=== PATIENT | female | born 1960 | race Caucasian/White ===

== ENCOUNTER 2018-09-14 06:03 | Day surgery (SDC) | payer BC, SELFPAY ==
--- NOTE | 2018-09-14 06:06 | W.COLOREPORT ---
Date of service: 09/14/18 Time of Service: : Colonoscopy Report Date of procedure: 09/14/18 Pre-op diagnosis general: Colon Cancer Screening Post-op diagnosis procedure note: same Procedure: Colonoscopy Surgeon: Nathalie Estrella Anesthesia proc note operative: MAC (Sydnie Ruffin CRNA) Estimated blood loss (mL): 0 Pathology: none sent Complications: None Disposition: same day Indications: Mrs. Robles is a pleasant 57 year old seen in the office for a screening colonoscopy. Risks, benefits and complications were reviewed with the patient and she wished to proceed no guarantees were given or implied. Prep: Miralax/Dulcolax Procedure Start Time: : Procedure End Time: : Retraction Time: 14 minutes Findings: Normal colon Procedure Description: After informed consent was obtained the patient was taken to the procedure room and placed in a left decubitous position. Monitors were applied and a time out was done. The patients name, date of , procedure, allergies to medications and metal in their body was reviewed. The patient was then sedated. Once sedated and comfortable a rectal exam was done. External exam was normal. Internal exam revealed a normal sphincter tone and no palpable masses. The scope was then introduced and retroflexed. Small Grade 1 internal hemorrhoids were identified. The scope was then advanced to the cecum without difficulty. The TI and appendiceal orifice were identified. The prep was adequate. The scope was then slowly retracted over 14 minutes back into the rectum. The scope was removed and the patient was woken up and taken back to Same day surgery in stable condition. The patient tolerated the procedure well and there were no immediate complications. Follow up: The patient should follow up in 10 years unless they develop changes in bowel habits or other new gastrointestinal complaints.
--- NOTE | 2018-09-14 06:10 | PDOC.DSDIS_ITS ---
Discharge Plan Disposition Patient Disposition: HOME Condition: Good Discharge Details Reason For Visit: Colonoscopy Attending Provider: Nathalie Estrella Primary Care Provider: Eden Kent Home Meds and New Rx's Prescriptions: Continue multivitamin [Daily Multi-Vitamin] 1 EACH tablet 1 ea PO DAILY RF: 0 cholecalciferol (vitamin D3) 5,000 UNIT tablet 5,000 unit PO DAILY RF: 0 black cohosh [Menopause Support] 20 MG tablet 20 mg PO BID RF: 0 inulin-chromium picolinate [Fiber Gummies (with chromium)] 1 EACH tablet, chewable 1 ea PO DAILY RF: 0 Discontinued polyethylene glycol 3350 17 gram powder in packet 255 g PO DAILY Qty: 15 RF: 0 bisacodyl [Dulcolax (bisacodyl)] 5 mg tablet,delayed release (DR/EC) 5 mg PO ONCE Qty: 4 RF: 0 Discharge Instructions Instructions: Colonoscopy (DC), Hemorrhoids (GEN) Additional Instructions: Findings: small internal hemorrhoids Follow up: 10 years New Medication: none Please call if you develop: fevers >101.5 Nausea or Vomiting Abdominal pain that is not transient DAY SURGERY UNIT POST COLONOSCOPY INSTRUCTIONS 1. Because there will be medication in your system for the next 24 hours, you may feel a little sleepy. Your coordination will be affected. Therefore: a. Do not drive or operate dangerous equipment for 24 hours. b. Do not drink alcohol beverages for 24 hours (not even beer). c. Plan to go home and rest for the day. 2. Generally there are no restrictions on your activity after a day or so has gone by, but you may feel a bit fatigued for a few days. 3 After you arrive home you may have a light meal and return to a normal diet as you can tolerate it without feeling sick to your stomach. 4. After surgery, you may feel pain or discomfort. This should be only transient , but if it persists please contact your doctor. 5. If there are any questions regarding the findings of your procedure, please feel free to contact your doctor. 6. If you are unable to contact your doctor with a problem, contact the ospital at [phone]. 7. Continue all your regular medications unless directed otherwise. I understand the above instructions and have no questions. Signature of Patient or Responsible Adult Escort Date/Time Name of Responsible Adult Escort Signature of Nurse Date/Time Stand Alone Forms: Lissett Roque (CALEBU) Activity:: Activity as Tolerated Activity:: Activity as Tolerated Diet:: high fiber diet Discharge Orders Discharge Orders: Discharge Order (Routine); Ordered 09/14/18 Ordered By: Nathalie Estrella DS: Diagnosis Discharge Diagnosis (1) Normal colonoscopy: Status: Acute
[2018-09-14 06:14] VITALS: BP 104/69; PULSE 69; RESP 14; TEMP 35.9; O2SAT 99
[2018-09-14] MEDS: Lactated Ringers 1,000 ML 80 ML IV (06:31)
[2018-09-14 08:11] VITALS: BP 98/69; PULSE 65; RESP 16; TEMP 35.9; O2SAT 99
== END 2018-09-14 08:48 | disposition home or self-care (01) ==
PROVIDERS: PCP Family Medicine; Visit Provider Surgery
PROC: 0DJD8ZZ Inspection of Lower Intestinal Tract, Via Natural or Artificial Opening Endoscopic (ICD-10-PCS; CPT 45378; principal; 2018-09-14 07:30)
DX: Z12.11 Encounter for screening for malignant neoplasm of colon (principal); K64.0 First degree hemorrhoids; K21.9 Gastro-esophageal reflux disease without esophagitis
CPT/HCPCS: 45378

== ENCOUNTER 2019-01-21 09:23 | Outpatient (REF) | payer BC, SELFPAY ==
--- NOTE | 2019-01-21 08:30 | PAPFT_PTH ---
PATIENT: Sera Robles LOC: [facility] U#:[id number] AGE/SX: 58/F ROOM: RE01/21/[address]: RACHELE Márquez : 1960 BED: DIS: 01/21/2019 SPEC #: [id number] RECD: 01/21/19 12:57 STATUS: JANAK REHernesto #: [id number] ALLIE: 01/21/19 08:[address]: Greer Horton DEPT: [facility] Cytology RECD BY: Mary Alonzo ENTERED: 01/21/19 12:57 SP TYPE: PAPFT AARON DR: Eden Kent MD Tissues: 1 - CX/ENDOCX FOR PAP SMEARS Procedures: PAP THIN PREP/UVM Screening HPV DNA PROBE Comments: [id number]
== END 2019-01-21 09:43 ==
LOC: LBN 09:23
PROVIDERS: PCP Family Medicine; Visit Provider Nurse Practitioner Family
DX: Z12.4 Encounter for screening for malignant neoplasm of cervix (principal); Z11.51 Encounter for screening for human papillomavirus (HPV)
CPT/HCPCS: 88142; 87624

== ENCOUNTER 2019-02-02 00:41 | Outpatient (CLI) | payer BC, SELFPAY ==
--- NOTE | 2019-02-02 07:57 | DI.MAMMO_ITS ---
SYMPTOM/DIAGNOSIS: SCREENING, Z12.31 MAMMOGRAMS: Mammograms were interpreted according to the usual protocol including computer analysis with CAD system, tomosynthesis and C view imaging. Comparison with prior examinations. Breast density C. No suspicious masses or microcalcifications are seen. There is no definite evidence of malignancy. IMPRESSION: Negative mammogram. Routine screening is recommended. Category I. MQSA ASSESSMENT OF FINDINGS: Negative. Category 1. Patient will receive a letter notifying them of these results. Bi-RADS category C. The breasts are heterogeneously dense, which may obscure small masses.
== END 2019-02-02 01:01 ==
PROVIDERS: PCP Family Medicine; Visit Provider Nurse Practitioner Family
DX: Z12.31 Encounter for screening mammogram for malignant neoplasm of breast (principal)
CPT/HCPCS: 77063; 77067

== ENCOUNTER 2019-06-15 01:37 | Outpatient (CLI) | payer BC, SELFPAY ==
[2019-06-15 07:46] LABS: Abs Immature Grans 0.02 k/cumm (0.0-0.09); Absolute Basophil Count 0.02 k/cumm (0.0-0.2); Absolute Eosinophil Count 0.14 k/cumm (0.0-0.7); Absolute Lymphocyte Count 1.46 k/cumm (1.2-3.4); Absolute Monocyte Count 0.42 k/cumm (0.11-0.7); Basophils % 0.4; Eosinophils % 2.9; HCT 41.4 % (36.0-46.0); HGB 13.8 g/dL (12.0-15.5); Immature Grans % 0.4; Lymphocytes % 30.7; Mean Corp. HGB Concentration 33.3 g/dL (32.0-36.0); Mean Corpuscular Hemoglobin 29.1 pg (27.0-33.0); Mean Corpuscular Volume 87.3 fL (80-95); Mean Platelet Volume 10.3 fL (8.0-11.0); Monocytes % 8.8; Neutrophils % 56.8; Platelet Count 289 x1000/uL (130-400); RBC 4.74 m/cumm (4.00-5.20); RBC Distribution Width 13.5 % (11.7-14.6); White Blood Cell Count 4.76 k/cumm (4.4-10.8)
[2019-06-15 08:35] LABS: ESR 18 mm/hr (0-30)
[2019-06-15 08:53] LABS: Calculated LDL 198 mg/dL; Cholesterol 268 mg/dL (50-200); HDL Cholesterol 58 mg/dL (40-60); Triglyceride 62 mg/dL (30-150)
[2019-06-16 11:21] LABS: Rheumatoid Factor <8 IU/mL (<12.5)
[2019-06-16 14:39] LABS: ANA Interpretation Positive (NEGAT); ANA Titer Pattern SEE COMMENTS
== END 2019-06-15 01:57 ==
PROVIDERS: PCP Family Medicine; Visit Provider Family Medicine
DX: M25.50 Pain in unspecified joint (principal); E78.00 Pure hypercholesterolemia, unspecified; R53.83 Other fatigue
CPT/HCPCS: 36415; 80061; 83721; 85652; 85025; 86038; 86431

== ENCOUNTER 2019-06-17 01:50 | Outpatient (CLI) | payer BC, SELFPAY ==
[2019-06-17 10:17] LABS: ALT 32 U/L (12-78); AST 19 U/L (15-37); Albumin 3.6 g/dL (3.4-5.0); Alkaline Phosphatase 73 U/L (46-116); Anion Gap 9.5 mmol/L (3-11); BUN 15 mg/dL (7-18); Bilirubin, Total 0.3 mg/dL (0.2-1.0); CO2 25.5 mmol/L (21.0-32.0); CREATININE 0.75 mg/dL (0.55-1.02); Calcium 8.8 mg/dL (8.5-10.1); Chloride 108 mmol/L (98-107); Glucose 100 mg/dL (70-100); Potassium 4.3 mmol/L (3.5-5.1); Sodium 143 mmol/L (136-145); TSH (W/Ref FT4) 3.89 uIU/mL (0.36-3.74); Total Protein 6.9 g/dL (6.4-8.2)
[2019-06-17 10:36] LABS: FREE T4 0.88 ng/dL (0.76-1.46)
== END 2019-06-17 02:10 ==
PROVIDERS: PCP Family Medicine; Visit Provider Internal Medicine
DX: R53.83 Other fatigue (principal); R10.9 Unspecified abdominal pain
CPT/HCPCS: 36415; 80053; 84439; 84443

== ENCOUNTER 2019-06-22 00:33 | Outpatient (CLI) | payer BC, SELFPAY ==
[2019-06-22] MEDS: Omnipaque 350 MG/ML 100 ML BTL IJ (11:07)
--- NOTE | 2019-06-22 11:11 | DI.CT_ITS ---
SYMPTOMS/DIAGNOSIS: ABD PAIN, R10.9 CT SCAN OF THE ABDOMEN AND PELVIS: CT scan of the abdomen and pelvis was performed following oral and intravenous contrast material. There are no priors for comparison. The visualized lung bases are clear. The liver is normal in size. There are hepatic cysts present. No suspicious hepatic mass is seen. The portal, superior mesenteric and splenic veins are patent. The gallbladder is negative. There is no biliary ductal dilatation. The pancreas is unremarkable as are the spleen and adrenal glands. The kidneys show normal and symmetric enhancement. No solid renal mass or obstruction is identified. The urinary bladder is intact. The reproductive organs are unremarkable. The right ovary is located in the right lower quadrant. There is a 2.2 cm cyst on the right ovary. The bowel shows no evidence of obstruction, inflammation or infection. No findings to suggest an acute appendicitis are present. The abdominal aorta is of normal caliber. No significant abdominal or pelvic adenopathy, ascites or pneumoperitoneum is seen. There is a small fat containing periumbilical hernia. Degenerative changes are seen in the spine. No acute osseous abnormality is identified. IMPRESSION: No evidence of an acute abdominal or pelvic process to account for the patient's symptoms.
== END 2019-06-22 00:53 ==
PROVIDERS: PCP Family Medicine; Visit Provider Internal Medicine
DX: R10.9 Unspecified abdominal pain (principal); N83.291 Other ovarian cyst, right side; K42.9 Umbilical hernia without obstruction or gangrene
CPT/HCPCS: 74177; J3490

== ENCOUNTER 2020-05-03 08:24 | Outpatient (CLI) | payer BC, SELFPAY ==
[2020-05-05 07:31] LABS: COVID-19 RT-PCR Result NEGATIVE (Negative)
== END 2020-05-03 08:44 ==
PROVIDERS: PCP Family Medicine; Visit Provider Family Medicine
DX: Z11.59 Encounter for screening for other viral diseases (principal)
CPT/HCPCS: U0003

== ENCOUNTER 2020-07-17 07:11 | Outpatient (CLI) | payer BC, SELFPAY ==
[2020-07-19 05:23] LABS: SARS-CoV-2 RNA Undetected (Undetected); SARS-CoV-2 Specimen Source Nasopharynx
== END 2020-07-17 07:31 ==
PROVIDERS: PCP Family Medicine; Visit Provider Family Medicine
DX: Z11.59 Encounter for screening for other viral diseases (principal)
CPT/HCPCS: U0003

== ENCOUNTER 2020-09-25 03:10 | Outpatient (CLI) | payer BC, SELFPAY ==
[2020-09-25 08:34] LABS: TSH 3.56 uIU/mL (0.36-3.74)
== END 2020-09-25 03:30 ==
PROVIDERS: PCP Family Medicine; Visit Provider Family Medicine
DX: E03.9 Hypothyroidism, unspecified (principal)
CPT/HCPCS: 36415; 84443

== ENCOUNTER 2020-11-10 03:50 | Outpatient (CLI) | payer BC, SELFPAY ==
--- NOTE | 2020-11-10 07:55 | DI.MAMMO_ITS ---
EXAM: MG MAMMO SCREENING CLINICAL HISTORY: screening TECHNIQUE: Bilateral full field digital CC and MLO mammographic images were obtained with 3D tomosyn thesis and utilizing computer aided detection (CAD). COMPARISON: Available for comparison. FINDINGS: Masses/Architectural Distortion: None seen. Microcalcifications: No suspicious pleomorphic-type are seen. Skin Thickening/Nipple Retraction: None. IMPRESSION: 1. No significant interval change with no specific features of malignancy noted. 2. Unless there is more urgent need, screening mammography is recommended, as per [place] [employer] guidelines. BI-RADS Category 1 - Negative Breast Density - Category B - Scattered areas of fibroglandular density Breast density category C or D implies that the patient has dense breast tissue. Dense breast tissue is very common and is not abnormal but dense breast tissue can make it harder to find cancer on a ma mmogram. Also, dense breast tissue may increase their breast cancer risk. This information about the result of the mammogram report was provided to the patient to raise their awareness. Use this report when you speak with the patient about their risks for breast cancer, which includes their family hist ory. At that time, you may recommend for more screening tests (Ultrasound or MRI) as they might be us eful based on their risk. A negative radiographic report should not delay biopsy if a dominant or clinically suspicious mass is present. Up to ten percent of cancers are not identified on mammography. A negative report may reinforce clinical impression. Adenosis and dense breasts may obscure an underlying neoplasm. False positive reports average 6 to 10%. Patient will receive a letter notifying them of these results.
== END 2020-11-10 04:10 ==
PROVIDERS: PCP Family Medicine; Visit Provider Nurse Practitioner Family
DX: Z12.31 Encounter for screening mammogram for malignant neoplasm of breast (principal)
CPT/HCPCS: 77063; 77067

== ENCOUNTER 2021-02-19 03:24 | Outpatient (CLI) | payer BC, SELFPAY ==
[2021-02-20 13:46] LABS: COVID-19 RT-PCR UVMMC Result Negative (Negative)
== END 2021-02-19 03:25 | disposition home or self-care (01) ==
LOC: LBO 03:24
PROVIDERS: PCP Family Medicine; Visit Provider Family Medicine
DX: Z20.822 Contact with and (suspected) exposure to COVID-19 (principal)
CPT/HCPCS: U0003

== ENCOUNTER 2021-11-29 09:03 | Outpatient (REF) | payer BC, SELFPAY ==
--- NOTE | 2021-11-29 08:30 | PAPFT_PTH ---
PATIENT: Sera Robles LOC: N U#:[id number] AGE/SX: 61/F ROOM: RE11/29/[address]: RACHELE Márquez : 1960 BED: DIS: 11/29/2021 SPEC #: [id number] RECD: 11/29/21 12:47 STATUS: JANAK REHernesto #: [id number] ALLIE: 11/29/21 08:[address]: Greer Horton DEPT: [facility] Cytology RECD BY: Mary Alonzo ENTERED: 11/29/21 12:47 SP TYPE: PAPFT OTHR DR: Guy Yu Tissues: 1 - CX/ENDOCX FOR PAP SMEARS Procedures: PAP THIN PREP/UVM Screening HPV DNA PROBE Comments: [id number]
== END 2021-11-29 09:04 | disposition home or self-care (01) ==
LOC: LBN 09:03
PROVIDERS: PCP Family Medicine; Visit Provider Nurse Practitioner Family
DX: Z12.4 Encounter for screening for malignant neoplasm of cervix (principal); Z11.51 Encounter for screening for human papillomavirus (HPV)
CPT/HCPCS: 88142; 87624

== ENCOUNTER 2021-12-24 00:41 | Outpatient (CLI) | payer BC, SELFPAY ==
--- NOTE | 2021-12-24 07:45 | DI.MAMMO_ITS ---
Exam(s) MAMMO SCREENING EXAM: MAMMO SCREENING CLINICAL HISTORY: screening TECHNIQUE: Mammograms were interpreted according to the usual protocol including computer analysis w [employer] CAD system, tomosynthesis and C-view imaging. COMPARISON: 2011 through 2019 FINDINGS: The breasts are composed of scattered fibroglandular densities, Breast Density category B. No suspicious masses or suspicious microcalcifications are seen. No skin thickening or abnormal axillary lymph nodes are seen. There has been no significant change from prior exams. IMPRESSION: BI-RADS Category 1, Negative mammogram Yearly screening mammography is recommended. Breast Density - Category B, scattered fibroglandular densities. A negative radiographic report should not delay biopsy if a dominant or clinically suspicious mass is present. Up to ten percent of cancers are not identified on mammography. A negative report may reinforce clinical impression. Adenosis and dense breasts may obscure an underlying neoplasm. False positive reports average 6 to 10%. Patient will receive a letter notifying them of these results.
== END 2021-12-24 01:01 ==
PROVIDERS: PCP Family Medicine; Visit Provider Nurse Practitioner Family
DX: Z12.31 Encounter for screening mammogram for malignant neoplasm of breast (principal)
CPT/HCPCS: 77063; 77067

== ENCOUNTER 2022-08-29 02:22 | Outpatient (CLI) | payer BC, SELFPAY ==
[2022-08-29 08:35] LABS: Anion Gap 7.6 mmol/L (3-11); BUN 17 mg/dL (7-18); CO2 27.4 mmol/L (21.0-32.0); CREATININE 0.8 mg/dL (0.55-1.02); Chloride 106 mmol/L (98-107); Estimated GFR 83.26 (mL/min/1.73m2); Glucose 106 mg/dL (74-106); Potassium 3.7 mmol/L (3.5-5.1); Sodium 141 mmol/L (136-145)
[2022-08-29 08:52] LABS: FREE T4 0.93 ng/dL (0.76-1.46)
[2022-08-29 09:04] LABS: Calculated LDL 190 mg/dL (<100); Cholesterol 265 mg/dL (<200); HDL Cholesterol 58 mg/dL (40-60); Triglyceride 88 mg/dL (<150)
[2022-08-30 10:10] LABS: Hepatitis C Ab w Rflx HCV PCR Negative (Negative)
[2022-08-30 10:22] LABS: HIV-1/2 Ag & Ab Screen Negative (Negative)
== END 2022-08-29 02:23 | disposition home or self-care (01) ==
LOC: LBO 02:22
PROVIDERS: Visit Provider Family Medicine
DX: E78.5 Hyperlipidemia, unspecified (principal); Z00.00 Encounter for general adult medical examination without abnormal findings; Z11.59 Encounter for screening for other viral diseases; Z13.6 Encounter for screening for cardiovascular disorders; Z11.4 Encounter for screening for human immunodeficiency virus [HIV]
CPT/HCPCS: 36415; 80048; 80061; 86803; 87389; 84439; 84443

== ENCOUNTER 2023-01-20 01:25 | Outpatient (CLI) | payer BC, SELFPAY ==
--- NOTE | 2023-01-20 07:30 | DI.MAMMO_ITS ---
Exam(s) MAMMO SCREENING EXAM: MAMMO SCREENING CLINICAL HISTORY: screening TECHNIQUE: Bilateral full field digital CC and MLO mammographic images were obtained with 3D tomosyn thesis and utilizing computer aided detection (CAD). COMPARISON: Available for comparison. FINDINGS: Masses/Architectural Distortion: None seen. Microcalcifications: No suspicious pleomorphic-type are seen. Skin Thickening/Nipple Retraction: None. IMPRESSION: 1. No significant interval change with no specific features of malignancy noted. 2. Unless there is more urgent need, screening mammography is recommended, as per [employer] guidelines. BI-RADS Category 1 - Negative Breast Density - Category B - Scattered areas of fibroglandular density Breast density category C or D implies that the patient has dense breast tissue. Dense breast tissue is very common and is not abnormal but dense breast tissue can make it harder to find cancer on a ma mmogram. Also, dense breast tissue may increase their breast cancer risk. This information about the result of the mammogram report was provided to the patient to raise their awareness. Use this report when you speak with the patient about their risks for breast cancer, which includes their family hist ory. At that time, you may recommend for more screening tests (Ultrasound or MRI) as they might be us eful based on their risk. A negative radiographic report should not delay biopsy if a dominant or clinically suspicious mass is present. Up to ten percent of cancers are not identified on mammography. A negative report may reinforce clinical impression. Adenosis and dense breasts may obscure an underlying neoplasm. False positive reports average 6 to 10%. Patient will receive a letter notifying them of these results.
== END 2023-01-20 01:45 ==
LOC: DI 01:26
PROVIDERS: PCP Nurse Practitioner Family; Visit Provider Obstetrics & Gynecology
DX: Z12.31 Encounter for screening mammogram for malignant neoplasm of breast (principal)
CPT/HCPCS: 77063; 77067

== ENCOUNTER 2023-01-28 03:39 | Outpatient (CLI) | payer BC, SELFPAY ==
[2023-01-28 12:49] LABS: Calculated LDL 212 mg/dL (<100); Cholesterol 292 mg/dL (<200); HDL Cholesterol 62 mg/dL (40-60); Triglyceride 92 mg/dL (<150)
== END 2023-01-28 03:40 | disposition home or self-care (01) ==
LOC: LOS 03:39
PROVIDERS: Nurse Practitioner Family; PCP Nurse Practitioner Family; Visit Provider Nurse Practitioner Family
DX: E78.5 Hyperlipidemia, unspecified (principal)
CPT/HCPCS: 36415; 80061

== ENCOUNTER 2023-08-22 03:26 | Outpatient (CLI) | payer BC, SELFPAY ==
[2023-08-22 08:24] LABS: ALT 27 U/L (14-59); AST 19 U/L (15-37); Albumin 3.5 g/dL (3.4-5.0); Alkaline Phosphatase 71 U/L (46-116); Anion Gap 8.5 mmol/L (3-11); BUN 20 mg/dL (7-18); Bilirubin, Total 0.3 mg/dL (0.2-1.0); CO2 27.5 mmol/L (21.0-32.0); Calcium 8.9 mg/dL (8.5-10.1); Calculated LDL 205 mg/dL (<100); Chloride 104 mmol/L (98-107); Cholesterol 279 mg/dL (<200); Glucose 126 mg/dL (74-106); HDL Cholesterol 59 mg/dL (40-60); Sodium 140 mmol/L (136-145); Total Protein 7.2 g/dL (6.4-8.2); Triglyceride 79 mg/dL (<150)
== END 2023-08-22 03:27 | disposition home or self-care (01) ==
LOC: LBO 03:27
PROVIDERS: PCP Nurse Practitioner Family; Visit Provider Nurse Practitioner Family
DX: E78.5 Hyperlipidemia, unspecified (principal)
CPT/HCPCS: 36415; 80053; 80061

== ENCOUNTER 2023-11-03 13:21 | Emergency (ER) | payer BC, SELFPAY ==
[2023-11-03 13:25] VITALS: BP 130/84; PULSE 89; RESP 18; TEMP 36.2; O2SAT 99
--- NOTE | 2023-11-03 14:00 | DI.RAD_ITS ---
Exam(s) XR CHEST 2V PA LATERAL EXAM: XR CHEST 2V PA LATERAL CLINICAL HISTORY: Cough, SOB TECHNIQUE: 2D digital imaging was performed. COMPARISON: No exams were available for comparison FINDINGS: HEART: Normal size. Aorta: Not dilated. PULMONARY VASCULATURE: Normal. LUNGS: Clear. PLEURAL SPACE: No pleural effusion or pneumothorax. BONE:Unremarkable for age. Soft tissues: Unremarkable. IMPRESSION: No acute abnormality. DATA REPOSITORY: RADIATION DOSE DELIVERED:
--- NOTE | 2023-11-03 14:09 | W.ED.GENAD ---
Discharge Plan Disposition Patient Disposition: Home Condition: Stable Discharge Details Clinical Impression: Bronchitis Primary Care Provider: Satnam Kingston ED Provider: Nena Van Home Meds and New Rx's Prescriptions: New benzonatate 100 mg capsule 100 mg PO BID-TID MDD 300mg PRN (Reason: cough) Qty: 10 0RF Rx Instructions: Take 1 tablet 2-3 times daily as needed for cough azithromycin 250 mg tablet See Rx Instructions .ROUTE .COMPLEX 6 Days Qty: 6 0RF Rx Instructions: For 250 mg dose pack: take 500 mg today (day 1), then 250 mg for 4 days (days 2-5) albuterol sulfate 90 mcg/actuation HFA aerosol inhaler 2 puff IH QID PRN (Reason: shortness of breath or wheezing) Qty: 8 0RF Rx Instructions: Take 1 to 2 puffs every 4-6 hours as needed for shortness of breath, cough or wheezing No Action ascorbic acid (vitamin C) 500 mg capsule PO acyclovir 800 mg tablet 800 mg PO TID 2 Days Qty: 18 4RF Rx Instructions: Take 2 day course prn HSV symptoms Discharge Instructions Instructions: Acute Bronchitis (ED) Additional Instructions: No evidence of pneumonia noted on the x-ray. Please take the azithromycin as prescribed, some cough medicine was also prescribed for you. And albuterol inhaler which is at your pharmacy. Follow up with primary care provider in 3-5 days. Return to ED sooner if any worsening or concerns. Increase oral fluids. Please take Tylenol or Ibuprofen with food every 4-6 hours as needed for pain and swelling. Referrals: Satnam Kingston, [employer] WORK[employer] [Primary Care Provider] - 3 days Medical Decision Making 63-year-old female presents to the ER with a chief complaint of cough, shortness of breath for the last week. She reports she has got a headache feels like she cannot breathe. Rapid COVID-negative. Denies any fevers. She just got basal cell carcinoma removed from her upper back this morning by her primary provider. On exam lungs are clear to auscultation bilaterally, she does have a dry bronchial cough noted. She denies any fever chills nausea vomiting diarrhea or any other associated symptoms. She has been trying [id number] medications with little to no relief such as Roxy[place] cough and cold and Robitussin. Chest x-ray ordered, Fluvid is pending, Tessalon Perles and Tylenol. Chest x-ray result shows nothing acute, however due to length of symptoms will treat empirically for possible bronchitis. Will give patient Tessalon Perles albuterol inhaler and instruct patient to follow-up with PCP. POC Covid and Flu negative. Patient given azithromycin Z-Joon, to treat empirically for bronchitis. Given home care follow-up care and strict return instructions. This text was generated using [employer] system, please disregard any oddities of phrase or misspellings. Lab Data Lab results reviewed: Yes I reviewed the patient's lab results. Labs: Laboratory Tests Range/Units 11/03/23 13:28 COVID-19 Source Nasopharynx SARS-CoV-2 (PCR) (Negative) Negative Influenza Type A (PCR) (Negative) Negative Influenza Type B (PCR) (Negative) Negative RSV (PCR) (Negative) Negative HPI General Mode of arrival: ambulatory. Date/Time Provider Initiated Documentation: 11/03/23 13:28. Limitations to Documentation: no limitations. Information obtained by: patient, RN notes reviewed and old records reviewed. HPI Narrative: 63-year-old female with a past medical history of depression, basal cell carcinoma, presents with cough, shortness of breath headache which has been ongoing for the last week. She did come from her PCP office after getting a basal cell carcinoma removed from her upper mid back. She states that she has had productive cough unable to tell me what sputum color is. She is afebrile nontachycardic upon arrival. Lungs are clear to auscultation bilaterally. She has tried Roxy[place] cold and Robitussin [id number] at home with little to no relief. Related Data Home Medications Medication Instructions Recorded Confirmed ascorbic acid (vitamin C) 500 mg mg PO 01/21/19 08/05/23 capsule acyclovir 800 mg tablet 800 mg PO TID 2 days #18 tabs 12/17/22 11/03/23 albuterol sulfate 90 mcg/actuation 2 puff inhalation QID PRN 11/03/23 aerosol inhaler shortness of breath or wheezing #8 grams azithromycin 250 mg tablet See Rx Instructions PO .COMPLEX 6 11/03/23 days #6 tabs benzonatate 100 mg capsule 100 mg PO BID-TID PRN cough #10 11/03/23 caps Previous Rx's Medication Instructions Recorded acyclovir 800 mg tablet 800 mg PO TID 2 days #18 tabs 12/17/22 albuterol sulfate 90 mcg/actuation 2 puff inhalation QID PRN 11/03/23 aerosol inhaler shortness of breath or wheezing #8 grams azithromycin 250 mg tablet See Rx Instructions PO .COMPLEX 6 11/03/23 days #6 tabs benzonatate 100 mg capsule 100 mg PO BID-TID PRN cough #10 11/03/23 caps Allergies Allergy/AdvReac Type Severity Reaction Status Date / Time No Known Drug Allergies Allergy Verified 11/03/23 13:28 General Stated Complaint: RespSymp JUANIS: 4 Review of Systems All systems reviewed & are unremarkable except as noted in HPI and below Cardiovascular Cardiovascular: Denies chest pain and Reports dyspnea on exertion Respiratory Respiratory: Reports cough, Denies hemoptysis, Reports pain with cough, Reports dyspnea on exertion, Denies stridor and Denies wheezing Gastrointestinal Gastrointestinal: Denies abdominal pain, Denies diarrhea, Denies nausea and Denies vomiting Allergic/Immunologic Allergic/Immunologic: Denies wheezing PFSH All Active Problems (Updated 11/03/23 @ 15:23 by Nena Van NP) Bronchitis (Acute) Seborrheic keratosis (Acute) Hyperlipidemia (Chronic) Constipation (Chronic) Herpes simplex (Acute 05/03/13) Genital-episodic outbreaks for which she takes his oral acyclovir Medical History (Updated 11/03/23 @ 15:23 by Nena Van NP) Depression Surgical History Tonsillectomy section X 3 EGD - MAC (07/16/16) Family History Mother Heart disease Hyperlipidemia Father Depression Heart disease STENT Hyperlipidemia Prostate cancer Sister No problems noted. Brother No problems noted. Brother Depression Heart disease Hyperlipidemia Maternal Grandfather , 78 Essential hypertension Lung cancer Paternal Grandfather , 79 Heart disease Lung cancer Sister Substance abuse Depression Hyperlipidemia Brother Depression Maternal Grandmother , 92 No problems noted. Paternal Grandmother , 75 No problems noted. Social History Smoking/Tobacco Use Status: Former Tobacco Use tobacco type: cigarettes Quit Date: 11/24/79 Tobacco: How many years used: 1 Second Hand Exposure: Yes Smoking risk assessment performed?: Yes Alcohol Intake: current Alcohol Intake frequency: a few times a month Drug use: Never Substance use type: does not use Caregiver/Support person: No Household members: spouse Housing: house Do you need help understanding health information?: Never current occupation: plain clothes police officer Pets and animals: No Sexually active: Yes Do you think of yourself as: straight/heterosexual Current gender identity: male What is your relationship status?: How often do you talk on the phone with friends or family?: once per week How often do you get together with friends or relatives?: once per week How often do you attend presybeterian or anabaptist services?: decline to answer Do you belong to any clubs or organized social groups?: no Panel score (0-1 are the most socially isolated patients): 1 What type of physical activity do you participate in: walking Duration: 45-60 minutes/day Frequency: 1-2 times per week Shefali/Muslim: None Special shefali needs: No Seatbelt use: always Helmet use: Yes Helmet use: always Drive intox or ride w/intox petrol tanker driver: No Do you feel safe at home: Yes Do you feel safe in your relationship?: Yes Female Reproductive History Menstrual control method: permanent sterilization Menopause type: natural History History 3 Para 3 Hx # Term Pregnancies Multiple births Hx # Pregnancies Ectopic pregnancies AB induced Hx Number of Living Children AB spontaneous Past Pregnancies Del. Date GA/Weeks # Preg Succ Route Wgt Sex Labor Lgth Anesthesia Location [facility] 11/14/82 4507.574 g Male [facility] 08/18/84 Yes 4280.778 g Male [facility] 11/15/88 3827.186 g Male [facility] Delivery Date: 11/14/82 Last Updated by: Joyce Willis Pt reports went to c section d/t baby being posterior Delivery Date: 08/18/84 Last Updated by: Joyce Willis Scheduled c section Delivery Date: 11/15/88 Last Updated by: Joyce Willis Scheduled c section Exam Narrative Exam Narrative: Constitutional: Alert and oriented x3. Appears stated age. Normal body habitus. Head: Normocephalic, no trauma. Eyes: Pupils PERRL, Red reflex noted, EOM's intact. Eyelids symmetrical without lesions, discharge, or swelling. ENT: Bilateral TM's WNL, External ear normal to inspection, no mastoid TTP, swelling, or erythema, Nasal turbinates WNL, no nasal discharge. Normal dentition, Posterior pharynx WNL, no exudate. Chest: RRR, Normal S1, S2, distal pulses intact. Resp: Lungs clear to auscultation bilaterally, no wheezes, rales, or rhonchi. Abdomen: Soft, non-distended, Normoactive bowel sounds all 4 quads. Musculoskeletal: Normal gait, 5/5 strength to all four extremities. Skin: No suspicious rashes or lesions. Capillary refill less than 2 sec. Neurologic: Cranial nerves II-XII intact. Alert and oriented x 3. Motor: No deficits noted. Hematologic/Lymphatic: No ecchymosis, no lymphadenopathy. Course Vital Signs Vital signs: Vital Signs Temperature 36.2 C L 11/03/23 13:25 Pulse 89 11/03/23 13:25 Respiratory Rate 18 11/03/23 13:25 Blood Pressure 130/84 11/03/23 13:25 Pulse Oximetry 99 11/03/23 13:25 Temperature 36.2 C L 11/03/23 13:25 Temperature Source Skin 11/03/23 13:25 Pulse 89 11/03/23 13:25 Respiratory Rate 18 11/03/23 13:25 Respiratory Effort Short of Breath 11/03/23 13:38 Respiratory Depth Normal 11/03/23 13:38 Blood Pressure 130/84 11/03/23 13:25 Blood Pressure Position Sitting 11/03/23 13:25 Pulse Oximetry 99 11/03/23 13:25 Oxygen Delivery Method Room Air 11/03/23 13:25 Oxygen Flow Rate 0 11/03/23 13:25 Pain Level 0 11/03/23 13:25
[2023-11-03] MEDS: Acetaminophen 500 MG TAB PO (14:13)
[2023-11-03] MEDS: Benzonatate 100 MG CAP PO (14:14)
[2023-11-03 14:44] LABS: COVID-19 PCR Negative (Negative); Influenza A PCR Negative (Negative); Influenza B PCR Negative (Negative); RSV PCR Negative (Negative)
[2023-11-03 14:50] LABS: Source Nasopharynx
[2023-11-03 15:33] VITALS: BP 99/67; PULSE 86; RESP 16; O2SAT 98
== END 2023-11-03 15:34 | disposition home or self-care (01) ==
PROVIDERS: Student in an Organized Health Care Education/Training Program; Emergency Provider Registered Nurse Emergency; PCP Nurse Practitioner Family
DX: J40 Bronchitis, not specified as acute or chronic (principal)
CPT/HCPCS: 87426; 87637; 99283; 71046; 99284

== ENCOUNTER → 2024-02-26 03:59 | Outpatient (CLI) | payer BC, SELFPAY ==
--- NOTE | 2024-02-26 07:51 | DI.MAMMO_ITS ---
Exam(s) MAMMO SCREENING EXAM: MAMMO SCREENING CLINICAL HISTORY: screening TECHNIQUE: Mammograms were interpreted according to the usual protocol including computer analysis w [employer] CAD system, tomosynthesis and C-view imaging. COMPARISON: 2013 through 2022 FINDINGS: The breasts are composed of scattered fibroglandular densities, Breast Density category B. No suspicious masses or suspicious microcalcifications are seen. No skin thickening or abnormal axillary lymph nodes are seen. There has been no significant change from prior exams. IMPRESSION: BI-RADS Category 1, Negative mammogram Yearly screening mammography is recommended. Breast Density - Category B, scattered fibroglandular densities. A negative radiographic report should not delay biopsy if a dominant or clinically suspicious mass is present. Up to ten percent of cancers are not identified on mammography. A negative report may reinforce clinical impression. Adenosis and dense breasts may obscure an underlying neoplasm. False positive reports average 6 to 10%. Patient will receive a letter notifying them of these results.
== END ==
PROVIDERS: PCP Nurse Practitioner Family; Visit Provider Obstetrics & Gynecology
DX: Z12.31 Encounter for screening mammogram for malignant neoplasm of breast (principal)
CPT/HCPCS: 77063; 77067

== ENCOUNTER 2025-02-23 18:12 | Outpatient (REF) | payer BC, SELFPAY ==
--- NOTE | 2025-02-23 15:45 | PAPFT_PTH ---
PATIENT: Sera Robles LOC: [facility] U#:[id number] AGE/SX: 64/F ROOM: RE02/23/[address]: Leslie Santamaria MD : [id number] BED: DIS: 02/23/2025 SPEC #: [id number] RECD: 02/23/25 18:13 STATUS: JANAK REQ #: [id number] ALLIE: 02/23/25 15:[address]: Leslie Santamaria DEPT: [facility] Cytology RECD BY: Mary Alonzo ENTERED: 02/23/25 18:13 SP TYPE: PAPFT OTHR DR: Satnam Messina, PAM Tissues: 1 - CX/ENDOCX FOR PAP SMEARS Procedures: PAP THIN PREP/[facility] Screening HPV DNA PROBE Comments: [id number] (HPV 16 & 18/45)
== END 2025-02-23 18:13 | disposition home or self-care (01) ==
LOC: LBN 18:12
PROVIDERS: PCP Nurse Practitioner Family; Visit Provider Obstetrics & Gynecology
DX: Z12.4 Encounter for screening for malignant neoplasm of cervix (principal)
CPT/HCPCS: 88142; 87624

== ENCOUNTER 2025-03-18 00:12 | Outpatient (CLI) | payer BC, SELFPAY ==
--- NOTE | 2025-03-18 07:30 | DI.MAMMO_ITS ---
Exam(s) MAMMO SCREENING EXAM: MAMMO SCREENING CLINICAL HISTORY: screening. TECHNIQUE: Bilateral full field digital CC and MLO mammographic images were obtained with 3D tomosyn thesis and utilizing computer aided detection (CAD). COMPARISON: Prior mammograms were reviewed. FINDINGS: There has been no significant change in the appearance and distribution of the fibroglandular tissue. Benign-appearing lymph node located in the inferolateral quadrant of the left breast is unchanged fro m prior mammograms. There are no new spiculated masses nor new malignant appearing microcalcification groups. There is no significant architectural distortion nor skin thickening-retraction. IMPRESSION: No radiographic evidence of malignancy. BI-RADS Category 2 - Benign Findings Breast Density - Category B - Scattered areas of fibroglandular density Breast density Category C or D implies that the patient has dense breast tissue. Dense breast tissue can make it harder to find cancer on a mammogram. Dense breast tissue is also associated with an incr eased risk of breast cancer. This information about the result of the mammogram report was provided to the patient to raise their awareness. Use this report when you speak with the patient about their risks for breast cancer, which includes their family history. At that time, you may recommend additional screening tests (Ultrasoun d or MRI) as these tests may add significant information. A negative radiographic report should not delay biopsy if a dominant or clinically suspicious mass is present. Up to ten percent of cancers are not identified on mammography. A negative report may reinforce clinical impression. Adenosis and dense breasts may obscure an underlying neoplasm. False positive reports average 6 to 10%. Patient will receive a letter notifying them of these results.
== END 2025-03-18 00:32 ==
LOC: DI 00:12
PROVIDERS: PCP Nurse Practitioner Family; Visit Provider Obstetrics & Gynecology
DX: Z12.31 Encounter for screening mammogram for malignant neoplasm of breast (principal); R92.323 Mammographic fibroglandular density, bilateral breasts; D24.2 Benign neoplasm of left breast
CPT/HCPCS: 77063; 77067

== ENCOUNTER 2025-04-20 00:36 | Outpatient (CLI) | payer BC, SELFPAY ==
--- NOTE | 2025-04-20 06:30 | DI.DEXA_ITS ---
Exam(s) XR DEXA BONE DENSITY W/WO REZA EXAM: XR DEXA BONE DENSITY W/WO REZA CLINICAL HISTORY: screening for osteoporosis in postmenopausal status,z78.0 TECHNIQUE: HoloTotSpot Horizon C densitometer analysis of left hip, lumbar spine and right forearm. La teral survey image of the thoracic and lumbar spine. COMPARISON: CR LUMBAR SPINE COMPLETE from 11/29/2014 FINDINGS: Lateral view of the thoracic and lumbar spine shows no evidence of compression fractures. Bone mineral density measurements of the lumbar spine correspond to a total T-score of -0.7, in the normal range. Bone mineral density measurements of the left hip correspond to a total T-score of -0.7. The femora l neck T-score is -1.4, in the osteopenic range. Theright forearm bone mineral density measurements correspond to a T-score of the distal 3rd of -0.6 , in the normal range.. The total T-score of -1.2, in the mildly osteopenic range. IMPRESSION: Osteopenia of the femoral neck. Overall normal bone mineral density.
== END 2025-04-20 00:56 ==
LOC: DI 00:36
PROVIDERS: PCP Nurse Practitioner Family; Visit Provider Nurse Practitioner Family
DX: Z78.0 Asymptomatic menopausal state (principal); M81.0 Age-related osteoporosis without current pathological fracture; Z13.820 Encounter for screening for osteoporosis
CPT/HCPCS: 77080

== ENCOUNTER 2025-04-28 03:35 | Outpatient (CLI) | payer BC, SELFPAY ==
[2025-04-28 08:19] LABS: ALT 39 U/L (14-59); AST 24 U/L (15-37); Albumin 3.7 g/dL (3.4-5.0); Alkaline Phosphatase 73 U/L (46-116); Anion Gap 4.8 mmol/L (3-11); BUN 17 mg/dL (7-18); Bilirubin, Total 0.4 mg/dL (0.2-1.0); CO2 29.2 mmol/L (21.0-32.0); CREATININE 0.9 mg/dL (0.55-1.02); Calcium 9.3 mg/dL (8.5-10.1); Calculated LDL 213 mg/dL (<100); Chloride 105 mmol/L (98-107); Cholesterol 295 mg/dL (<200); Estimated GFR 70.95 (mL/min/1.73m2); Glucose 113 mg/dL (74-106); HDL Cholesterol 65 mg/dL (>or=50); Potassium 4.1 mmol/L (3.5-5.1); Sodium 139 mmol/L (136-145); TSH (W/Ref FT4) 5.85 uIU/mL (0.36-3.74); Total Protein 7.5 g/dL (6.4-8.2); Triglyceride 88 mg/dL (<150); Vitamin D 25 Total 72 ng/mL (30-100)
[2025-04-28 08:36] LABS: FREE T4 0.91 ng/dL (0.76-1.46)
[2025-04-28 19:34] LABS: HBs Antibody, Quant 48.8 mIU/mL (See Note); Hep B Surface Ab Positive (See Note); Hepatitis B Core Antibody Negative (Negative); Hepatitis B Surface Antigen Negative (Negative)
== END 2025-04-28 03:36 | disposition home or self-care (01) ==
LOC: LBO 03:35
PROVIDERS: PCP Nurse Practitioner Family; Visit Provider Nurse Practitioner Family
DX: E78.5 Hyperlipidemia, unspecified (principal); E03.8 Other specified hypothyroidism; Z11.59 Encounter for screening for other viral diseases; Z51.81 Encounter for therapeutic drug level monitoring; F32.A Depression, unspecified
CPT/HCPCS: 36415; 80053; 80061; 82306; 86704; 86706; 87340; 84439; 84443

== ENCOUNTER 2025-08-29 03:30 | Outpatient (CLI) | payer MEDICARE, SELFPAY ==
[2025-08-29 09:14] LABS: Calculated LDL 191 mg/dL (<100); Cholesterol 265 mg/dL (<200); HDL Cholesterol 61 mg/dL (>or=50); TSH (W/Ref FT4) 4.14 uIU/mL (0.36-3.74); Triglyceride 66 mg/dL (<150)
== END 2025-08-29 03:31 | disposition home or self-care (01) ==
PROVIDERS: PCP Nurse Practitioner Family; Visit Provider Nurse Practitioner Family
DX: E78.5 Hyperlipidemia, unspecified (principal); E03.8 Other specified hypothyroidism
CPT/HCPCS: 80061; 84439; 84443